=== PATIENT | female | born 1970 | race Caucasian/White ===

== ENCOUNTER 2017-01-01 20:45 | Emergency (ER) | payer BC ==
[~2017-01-01] VITALS: Ht 167.6 cm; Wt 103.8 kg
[2017-01-01 21:03] VITALS: Ht 167.6 cm; Wt 103.8 kg
--- NOTE | 2017-01-01 21:44 | DIAGNOSTIC IMAGING REPORT ---
LEFT HIP UNILATERAL 2 VIEWS CLINICAL HISTORY: Left hip pain status post trauma COMPARISON: None. DISCUSSION: No acute fractures or dislocations are visualized. Mild angulation of the left femoral neck head junction laterally is felt to be chronic. The joint space appears well-preserved for age. IMPRESSION: No acute fractures or dislocations are visualized. Electronically signed by: Dangelo Man M.D. 01/01/2017 9:42 PM Dictated Date/Time: 01/01/2017 9:42 PM
[2017-01-01] MEDS ORDERED: NAPR1TAB9 PO (22:21)
[2017-01-01] MEDS ORDERED: ACET-1256 PO (22:21)
--- NOTE | 2017-01-01 22:47 | DIAGNOSTIC IMAGING REPORT ---
CT PELVIS NO IV/ORAL CONT (CT) CT DOSE: 766.87 mGy.cm CLINICAL HISTORY: Left hip pain status post trauma TECHNIQUE: Helical images were acquired in the transverse plane. Coronal reformatted images were acquired. COMPARISON STUDY: Conventional radiographic study dated 01/01/2017 FINDINGS: No acute fractures or dislocations are visualized. There is no evidence of SI joint diastases. There is no evidence of symphysis diastases. There is an left-sided os acetabulum. No destructive lesions are visualized. No abnormal pelvic masses are visualized. There is no evidence of pathologic lymphadenopathy. There is no evidence of free pelvic fluid. There are mild degenerative changes the L4-5 level. IMPRESSION: No fractures identified. Electronically signed by: Dangelo Man M.D. 01/01/2017 10:45 PM Dictated Date/Time: 01/01/2017 10:41 PM
[2017-01-01] MEDS ORDERED: NAPROSYN HOME PACK 250 MG VIAL PO ONE (23:00)
[2017-01-01] MEDS ORDERED: NORCO 5/325MG HOME PACK PO ONE (23:00)
[2017-01-01] MEDS ORDERED: HYDR-5688 PO (23:02)
[2017-01-01] MEDS ORDERED: NAPR-1169 PO (23:02)
--- NOTE | 2017-01-01 23:02 | EMERGENCY ROOM VISIT NOTE ---
ED Visit Note First contact with patient: 21:15 Chief Complaint: LEFT Hip Pain History of Present Illness: Patient is a 46-year-old female who presents to the emergency Department this evening for evaluation of her LEFT-sided hip pain. She reports that she has had increasing pain to the posterior aspect of the LEFT -sided hip which radiates into the groin. She reports increasing pain with changes in position. She denies any history of fall or injury to the affected area. There is been no recent trauma. 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 She is tried [id number]-[id number] medications including Tylenol and Advil without relief of symptoms. She denies any low back pain. She denies any numbness or tingling into the distal extremity. She reports no loss of control bowel/bladder or saddle anesthesia. The patient rates her current discomfort as 2/10. She denies any fevers, chills, abdominal pain, hematochezia , melena, hematuria, or dysuria. Medications: Reviewed and discussed with the patient. Allergies: Aspirin PMH: No pertinent past medical history. SHx: Patient is a 46-year-old female who lives locally. ROS: All pertinent positive and negative review of systems are appropriately documented in the History of Present Illness. Physical Exam: VITAL SIGNS - Vital signs and nursing notes were reviewed. GENERAL - 46-year-old female appearing her stated age and in noticeable discomfort throughout the exam. MUSCULOSKELETAL - LEFT hip without erythema, edema, and ecchymosis. Moderate tenderness to palpation appreciated over the posterior aspect of the affected hip. No tenderness extending into the upper leg or buttocks. +5/5 strength appreciated bilaterally. Pt with full AROM at affected joint. No tenderness to palpation appreciated in the lumbar spine distribution. ZACH (CHINO) TEST: Positive reproduction of pain. HIP SCOURING TEST: Produced a mild amount of pain. NEUROLOGIC/VASCULAR - Neurovascularly intact distally with +3/5 dorsalis pedis pulses palpated bilaterally. Normal sensation to light and sharp touch appreciated distally. IMAGING: LEFT HIP UNILATERAL 2 VIEWS CLINICAL HISTORY: Left hip pain status post trauma COMPARISON: None. DISCUSSION: No acute fractures or dislocations are visualized. Mild angulation of the left femoral neck head junction laterally is felt to be chronic. The joint space appears well-preserved for age. IMPRESSION: No acute fractures or dislocations are visualized. CT PELVIS NO IV/ORAL CONT (CT) CT DOSE: 766.87 mGy.cm CLINICAL HISTORY: Left hip pain status post trauma TECHNIQUE: Helical images were acquired in the transverse plane. Coronal reformatted images were acquired. COMPARISON STUDY: Conventional radiographic study dated 01/01/2017 FINDINGS: No acute fractures or dislocations are visualized. There is no evidence of SI joint diastases. There is no evidence of symphysis diastases. There is an left-sided os acetabulum. No destructive lesions are visualized. No abnormal pelvic masses are visualized. There is no evidence of pathologic lymphadenopathy. There is no evidence of free pelvic fluid. There are mild degenerative changes the L4-5 level. IMPRESSION: No fractures identified. ED Course: Patient was seen and evaluated by myself. Patient was provided one Mandaree and naproxen for her symptoms of pain. X-ray of the affected hip was obtained. Imaging results above. Imaging results reviewed with the patient. CT was ordered of the pelvis for further evaluation. Imaging results above. Imaging results were reviewed with the patient who acknowledges understanding. She declines crutches. She'll follow-up with orthopedic surgery from today's visit. She will return for any changing or worsening symptoms. Patient discharged home in good condition. In the evaluation and treatment of this patient, the following differential diagnoses were considered: Hip Fracture, Hip Dislocation, Greater Trochanteric Bursitis, Musculoskeletal Pain, Lumbar Radiculopathy. Given the patient's presentation and stated complaints, I did elect to perform the above-mentioned workup. The patient presents with pain in the posterior portion of the hip which wraps around anteriorly into the groin. She has no lumbar pain or concerning symptoms for radiculopathy. X-ray was concerning for some angulation at the joint. Because of this, and her concerning symptomatology, a CT scan was obtained for further evaluation of possible occult fracture. CT study demonstrates some arthritic changes. The patient will follow-up with orthopedic surgery from today's visit. She will return for changing/worsening symptoms. Patient discharged home in good condition. Impression: LEFT Hip Pain, Os Acetabulum Discharge Instructions: You have been treated in the Emergency Department for Hip Pain - Os Acetabulum. You have been prescribed Mandaree to be used for pain control. This is a narcotic medication. You cannot drive or consume alcohol while on this medicine. This medicine should only be used for pain that cannot be controlled with over-the- counter pain medicines. You have been prescribed Naprosyn (naproxen). This is an anti-inflammatory medication used to help decrease your symptoms and improve your pain. Please take this medication as prescribed. It is best to take this medication with food. Please to not take this antibiotic with other NSAIDS including: Ibuprofen , Advil, Motrin, Aspirin, Aleve, Celebrex, etc. For pain control, you can use the following [id number] medicines (if >12 yo): - Regular strength (325mg/tab) Tylenol (acetaminophen) 2 tabs every 4-6 hours as needed. Do not exceed 12 tablets in a 24 hour period. Avoid taking more than 4 grams (4000 mg) of Tylenol per day. This includes any other sources of acetaminophen you may take on a regular basis. - Regular strength (200 mg/tab) Advil (ibuprofen) 1-2 tabs every 4-6 hours as needed. Do not exceed a dose of 3200 mg per day. If this is a recent injury (<24 hrs), ice can be applied to the area of pain for the first 3 days to help decrease pain and inflammation. Ice massages can be performed by freezing water in a paper cup, peeling back the cup to expose the ice and then massaging over the affected area. You have been provided the number for an Orthopaedic Surgeon. You should call this number as soon as possible to establish a follow-up visit from today's Emergency Department visit. Return to the Emergency Department if your current symptoms worsen despite treatment course outlined above. Current/Historical Medications Scheduled Naproxen (Naprosyn), 500 MG PO BID Scheduled PRN Acetaminophen (Tylenol), 1,000 MG PO Q6H PRN for Pain Hydrocodone/Acetaminophen 5MG/325MG (Mandaree 5MG/325MG), 1-2 TABLET PO Q4H PRN for Pain Naproxen (Aleve), 220 MG PO UD PRN for Pain Allergies Coded Allergies: Aspirin (Verified Allergy, Unknown, 10/31/09) Vital Signs Date Time Temp Pulse Resp B/P Pulse Ox O2 Delivery O2 Flow Rate FiO2 01/01/17 23:18 36.5 95 18 122/77 96 01/01/17 23:12 95 18 122/77 96 Room Air 01/01/17 21:03 36.5 67 18 127/79 96 Room Air Medications Administered Medications (Trade) Dose Ordered Sig/Nasir Route Start Time Stop Time Status Last Admin Dose Admin Acetaminophen/ Hydrocodone Bitart (Mandaree 5/325mg Home Pack) 1 homepack UD ONCE PO 01/01/17 23:00 01/01/17 23:01 DC 01/01/17 23:05 1 HOMEPACK Naproxen (Naproxen 250MG Home Pack) 1 homepack UD ONCE PO 01/01/17 23:00 01/01/17 23:01 DC 01/01/17 23:04 1 HOMEPACK Departure Information Impression Primary Impression: Hip pain, left Dispostion Home / Self-Care Condition GOOD Prescriptions Naproxen (Naprosyn) 500 Mg Tab 500 MG PO BID for 10 Days, #20 TAB Prov: Juvenal Beal PA-C 01/01/17 Hydrocodone/Acetaminophen 5MG/325MG (Mandaree 5MG/325MG) Tab 1-2 TABLET PO Q4H Y for Pain, #16 TAB For Initial Treatment Prov: Juvenal Beal PA-C 01/01/17 Referrals Chilo Rojo M.D. (PCP) Anish White D.O. Patient Instructions [facility] Additional Instructions You have been treated in the Emergency Department for Hip Pain - Os Acetabulum. You have been prescribed Mandaree to be used for pain control. This is a narcotic medication. You cannot drive or consume alcohol while on this medicine. This medicine should only be used for pain that cannot be controlled with over-the- counter pain medicines. You have been prescribed Naprosyn (naproxen). This is an anti-inflammatory medication used to help decrease your symptoms and improve your pain. Please take this medication as prescribed. It is best to take this medication with food. Please to not take this antibiotic with other NSAIDS including: Ibuprofen , Advil, Motrin, Aspirin, Aleve, Celebrex, etc. For pain control, you can use the following [id number] medicines (if >12 yo): - Regular strength (325mg/tab) Tylenol (acetaminophen) 2 tabs every 4-6 hours as needed. Do not exceed 12 tablets in a 24 hour period. Avoid taking more than 4 grams (4000 mg) of Tylenol per day. This includes any other sources of acetaminophen you may take on a regular basis. - Regular strength (200 mg/tab) Advil (ibuprofen) 1-2 tabs every 4-6 hours as needed. Do not exceed a dose of 3200 mg per day. If this is a recent injury (<24 hrs), ice can be applied to the area of pain for the first 3 days to help decrease pain and inflammation. Ice massages can be performed by freezing water in a paper cup, peeling back the cup to expose the ice and then massaging over the affected area. You have been provided the number for an Orthopaedic Surgeon. You should call this number as soon as possible to establish a follow-up visit from today's Emergency Department visit. Return to the Emergency Department if your current symptoms worsen despite treatment course outlined above.
[2017-01-01 23:18] VITALS: BP 122/77; PULSE 95; TEMP 36.5; O2SAT 96
== END 2017-01-01 23:19 | disposition home or self-care (01) ==
LOC: C.EDB 20:45 → C.EDD 23:19
DX: M25.552 Pain in left hip (principal)